=== PATIENT | male | born 1960 | race Caucasian/White ===

== ENCOUNTER 2019-03-14 19:58 | Emergency (ER) | payer OTHER, MEDICARE ==
--- NOTE | 2019-03-15 09:33 | EDM.PDOC ---
ED HPI GENERAL MEDICAL PROBLEM - General Chief Complaint: General Stated Complaint: DROPPED A WEIGHT ON RIGHT LEG Time Seen by Provider: 03/14/19 20:20 Source of Information: Reports: Patient, Family History Limitations: Reports: No Limitations - History of Present Illness INITIAL COMMENTS - FREE TEXT/NARRATIVE: This is a 58yo M here for right lower leg swelling and pain after his son accidentally dropped a 10lb weight on his lower leg during exercise. Patient able to walk without issues. There is a large swelling and has some concerns of a clot. Onset: Sudden Duration: Constant Location: Reports: Lower Extremity, Right Quality: Reports: Ache Severity: Moderate Improves with: Reports: None Worsens with: Reports: None Associated Symptoms: Reports: No Other Symptoms Right Middle Leg Pain Score (Numeric/FACES): 2 - Related Data Allergies Allergy/AdvReac Type Severity Reaction Status Date / Time No Known Allergies Allergy Verified 03/14/19 20:36 ED ROS GENERAL - Review of Systems Review Of Systems: ROS reveals no pertinent complaints other than HPI. ED EXAM, GENERAL - Physical Exam Exam: See Below Exam Limited By: No Limitations General Appearance: Alert, WD/WN, No Apparent Distress Eye Exam: Bilateral Eye: EOMI, PERRL Ears: Normal External Exam Respiratory/Chest: No Respiratory Distress Cardiovascular: Normal Peripheral Pulses Peripheral Pulses: 2+: Dorsalis Pedis (L), Dorsalis Pedis (R) Extremities: Leg Pain, Other (large bruise and swelling of the medial mid tibia [id number] - no neurovascular compromise, no tingling or weakness of the toes or foot/calf) Course - Vital Signs Last Recorded V/S: Last Vital Signs Temp 36.8 C 03/14/19 20:36 Pulse 99 03/14/19 20:36 Resp 20 03/14/19 20:36 BP 139/85 03/14/19 20:36 Pulse Ox 100 03/14/19 20:36 Departure - Departure Time of Disposition: 20:45 Disposition: Home, Self-Care 01 Condition: Good Clinical Impression: Hematoma of leg Qualifiers: Encounter type: initial encounter Laterality: right Qualified Code(s): S80.11XA - Contusion of right lower leg, initial encounter - Discharge Information Instructions: RICE Therapy for Routine Care of Injuries, [id number], Hematoma , [id number] Referrals: PCP,None [Primary Care Provider] - Forms: ED Department Discharge Additional Instructions: Discharge home. Rest, elevated the leg. Do no apply pressure to the hematoma. Follow up in the clinic as needed. If you have questions or concerns call or return to the ER. - Problem List & Annotations (1) Hematoma of leg SNOMED Code(s): 524585533 Code(s): S80.10XA - CONTUSION OF UNSPECIFIED LOWER LEG, INITIAL ENCOUNTER Status: Acute Qualifiers: Encounter type: initial encounter Laterality: right Qualified Code(s): S80.11XA - Contusion of right lower leg, initial encounter - Problem List Review Problem List Initiated/Reviewed/Updated: Yes - Assessment/Plan Plan: Counseled on supportive and conservative care and management. Patient to f/u for any further concerns or care. [place] are staying [place] the [place] [facility] [place].
== END 2019-03-14 20:28 | disposition home or self-care (01) ==
LOC: LB.ED 19:58
DX: S80.11XA Contusion of right lower leg, initial encounter (principal); W20.8XXA Other cause of strike by thrown, projected or falling object, initial encounter
CPT/HCPCS: 99282